=== PATIENT | female | born 2000 | race Caucasian/White ===

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

== ENCOUNTER 2022-06-27 18:24 | Emergency (ER) | payer MEDICAID ==
[~2022-06-27] VITALS: Ht 144.8 cm; Wt 47.0 kg
[2022-06-27 18:31] VITALS: BP 113/87
== END 2022-06-27 22:30 | disposition left against medical advice (07) ==
LOC: ER 18:24
DX: Z53.21 Procedure and treatment not carried out due to patient leaving prior to being seen by health care provider (principal)
CPT/HCPCS: 99281

== ENCOUNTER 2022-06-28 11:19 | Emergency (ER) | payer MEDICAID ==
[~2022-06-28] VITALS: Ht 144.8 cm; Wt 48.0 kg
[2022-06-28 11:27] VITALS: BP 96/62
[2022-06-28] MEDS ORDERED: TETANUS, DIPHTHERIA, PERTUSSIS VAC/PF 0.5ML (>10YR OLD) IM ONE (13:30)
[2022-06-28] MEDS ORDERED: LIDOCAINE HCL 1% 20ML VIAL (Pyxis) INJ INFIL SCH (13:45)
== END 2022-06-28 13:04 | disposition left against medical advice (07) ==
LOC: ER 11:50
DX: L02.414 Cutaneous abscess of left upper limb (principal); J45.909 Unspecified asthma, uncomplicated
CPT/HCPCS: 99281